=== PATIENT | male | born 1955 | race Caucasian/White ===

== ENCOUNTER 2018-05-23 12:21 | Inpatient (IN) | payer BC ==
[2018-05-23] VITALS (7 sets, daily range): BP systolic 129–170; BP diastolic 70–102
[~2018-05-23] VITALS: Ht 165.1 cm; Wt 72.6 kg
--- NOTE | 2018-05-23 12:40 | Emergency Room Report ---
History of Present Illness General Chief Complaint: General Complaint Source: Patient (Noemy Vallejo DO) Present Illness HPI Patient presents with reports of retained foreign body in the rectal area He recalls that this happened about one hour prior to arrival Patient feels dehydrated as well Denies any chest pain or shortness of breath denies any abdominal pain Denies any fevers or chills Patient some mild nausea Denies any other trauma (Noemy Vallejo DO) Allergies: Coded Allergies: No Known Allergies (Unverified , 05/23/18) Patient History Past Medical History: see triage record Pertinent Family History: none Reviewed Nursing Documentation: PMH: Agreed; PSxH: Agreed (Noemy Vallejo DO) Nursing Documentation-PMH Hx Cancer: Yes - lung (Noemy Vallejo DO) Review of Systems All Other Systems: negative except mentioned in HPI (Noemy Vallejo DO) Physical Exam Vital Signs Date Time Temp Pulse Resp B/P (MAP) Pulse Ox O2 Delivery O2 Flow Rate FiO2 05/23/18 12:23 99.0 106 20 159/103 95 Room Air 99.0 Sp02 EP Interpretation: reviewed, normal General Appearance: mild distress - Appears anxious Head: normocephalic, atraumatic Eyes: bilateral eye PERRL, bilateral eye EOMI ENT: hearing grossly normal, TMs + canals normal, uvula midline, dry mucus membranes Neck: full range of motion, supple, no meningismus, no bony tend Respiratory: lungs clear, normal breath sounds, no rhonchi, no respiratory distress, no retraction, no accessory muscle use Cardiovascular #1: normal peripheral pulses, regular rate, rhythm, no edema, no gallop, no JVD, no murmur Gastrointestinal: normal bowel sounds, non tender, soft, no mass, no organomegaly, non-distended, no guarding, no hernia, no pulsatile mass, no rebound Rectal: other - Initially I was not able to palpate any foreign bodies, no was some retained stool in the rectal region, after further attempt it feels as if there is a foreign body at the very distal tip of my fingertip, not able to be further manipulated or grasped Genitourinary: no CVA tenderness Musculoskeletal: normal inspection Neurologic: oriented x3, responsive, blasting miner III-XII nml as tested, motor strength/ tone normal, sensory intact Psychiatric: mood/affect normal Skin: normal color, no rash, warm/dry, palpation normal Lymphatic: normal inspection, no adenopathy (Noemy Vallejo DO) Procedures Procedural Sedation Consent: Verbal Time out called at: 15:08 Heart: abnormal Lungs: abnormal Abdomen: normal Extremities: normal Plan for Moderate Sedation: Propofol ASA Score: II Procedure Narrative Patient was given propofol in 3 mL aliquots until he was adequately sedated total the propofol used was 110 mg IV the patient was adequately sedated for procedure. Patient had the foreign body removed by Dr. Gabriel see his procedure note for procedure. Patient tolerated well. The patient is awake and alert post procedure Start Time: 15:09 End Time: 15:22 Post-Sedation Assessment The patient was noted to be awake and alert after procedure without any evident respiratory distress. Communication: No Apparent Limitation Mental Status: Awake Respiration: Unlabored Skin Condition: WNL Abdomen: WNL Nausea: NO Vomiting: NO (Bobby Owens MD) Medical Decision Making Diagnostic Impression: Primary Impression: Retained foreign body Additional Impression: Rectal bleeding ER Course Initial attempt in the emergency room is not able to remove the foreign body Patient at this time requiring further hydration imaging study does confirm the retained foreign body as well Which clinically correlates to the digital exam At this time patient requiring GI/Gen. surgery consultation And further inpatient care There are no signs of any intestinal perforation And patient admitted for further care Labs Test 05/23/18 12:45 White Blood Count 13.8 K/UL (4.8-10.8) Red Blood Count 5.30 M/UL (4.70-6.10) Hemoglobin 16.6 G/DL (14.2-18.0) Hematocrit 49.3 % (42.0-52.0) Mean Corpuscular Volume 93 FL (80-99) Mean Corpuscular Hemoglobin 31.4 PG (27.0-31.0) Mean Corpuscular Hemoglobin Concent 33.7 G/DL (32.0-36.0) Red Cell Distribution Width 11.1 % (11.6-14.8) Platelet Count 207 K/UL (150-450) Mean Platelet Volume 8.0 FL (6.5-10.1) Neutrophils (%) (Auto) 81.1 % (45.0-75.0) Lymphocytes (%) (Auto) 8.7 % (20.0-45.0) Monocytes (%) (Auto) 9.4 % (1.0-10.0) Eosinophils (%) (Auto) 0.3 % (0.0-3.0) Basophils (%) (Auto) 0.6 % (0.0-2.0) Prothrombin Time 12.3 SEC (9.30-11.50) Prothromb Time International Ratio 1.2 (0.9-1.1) Activated Partial Thromboplast Time 28 SEC (23-33) Sodium Level 129 MMOL/L (136-145) Potassium Level 3.7 MMOL/L (3.5-5.1) Chloride Level 95 MMOL/L (98-107) Carbon Dioxide Level 24 MMOL/L (21-32) Anion Gap 10 mmol/L (5-15) Blood Urea Nitrogen 15 mg/dL (7-18) Creatinine 1.0 MG/DL (0.55-1.30) Estimat Glomerular Filtration Rate > 60 mL/min (>60) Glucose Level 94 MG/DL (74-106) Calcium Level 8.4 MG/DL (8.5-10.1) Total Bilirubin 0.9 MG/DL (0.2-1.0) Aspartate Amino Transf (AST/SGOT) 156 U/L (15-37) Alanine Aminotransferase (ALT/SGPT) 57 U/L (12-78) Alkaline Phosphatase 59 U/L (46-116) Total Protein 7.1 G/DL (6.4-8.2) Albumin 3.7 G/DL (3.4-5.0) Globulin 3.4 g/dL Albumin/Globulin Ratio 1.1 (1.0-2.7) Lipase 191 U/L (73-393) (Noemy Vallejo DO) ER Course Foreign body was removed Dr. Gabriel. The patient tolerated well. The patient was noted to have some evidence of a continued bleeding. Patient will be actively hospital for further evaluation and probable further endoscopic evaluation. (Bobby Owens MD) Other X-Ray Diagnostic Results Other X-Ray Diagnostic Results : X-Ray ordered: KUB # of Views/Limited Vs Complete: 1 View Indication: Pain EP Interpretation: Yes Interpretation: no dislocation, no soft tissue swelling, no fractures, other - Evidence of foreign body Impression: Other - Foreign body Electronically Signed by: Noemy Vallejo DO (Noemy Vallejo DO) Last Vital Signs Date Time Temp Pulse Resp B/P (MAP) Pulse Ox O2 Delivery O2 Flow Rate FiO2 05/23/18 12:23 99.0 106 20 159/103 95 Room Air 99.0 Status: improved (Noemy Vallejo DO) Status: unchanged (Bobby Owens MD) Disposition: ADMITTED INPATIENT Condition: Serious Noemy Vallejo DO May 23, 2018 12:40 Bobby Owens MD May 23, 2018 15:33
[2018-05-23] MEDS ORDERED: Midazolam 2mg/2ml Inj IVP ONE (12:45)
[2018-05-23] MEDS ORDERED: Morphine Sulfate 4mg/ml Inj (IV USE ONLY) IVP ONE (12:45)
[2018-05-23 13:02] LABS: BASOPHILS % (AUTO) 0.6 % (0.0-2.0); EOSINOPHILS % (AUTO) 0.3 % (0.0-3.0); HEMATOCRIT 49.3 % (42.0-52.0); HEMOGLOBIN 16.6 G/DL (14.2-18.0); LYMPHOCYTES % (AUTO) 8.7 % (20.0-45.0); MEAN CORPUSCULAR VOLUME 93 FL (80-99); MONOCYTES % (AUTO) 9.4 % (1.0-10.0); NEUTROPHILS % (AUTO) 81.1 % (45.0-75.0); PLATELET COUNT 207 K/UL (150-450); RED CELL DISTRIBUTION WIDTH 11.1 % (11.6-14.8); WHITE BLOOD COUNT 13.8 K/UL (4.8-10.8)
[2018-05-23 13:12] LABS: ANION GAP 10 mmol/L (5-15); BLOOD UREA NITROGEN 15 mg/dL (7-18); CALCIUM 8.4 MG/DL (8.5-10.1); CARBON DIOXIDE 24 MMOL/L (21-32); CHLORIDE 95 MMOL/L (98-107); POTASSIUM 3.7 MMOL/L (3.5-5.1); SODIUM 129 MMOL/L (136-145)
[2018-05-23 13:13] LABS: INR 1.2 (0.9-1.1)
[2018-05-23 13:17] LABS: ALANINE AMINOTRANSFERASE 57 U/L (12-78); ALBUMIN 3.7 G/DL (3.4-5.0); ALBUMIN/GLOBULIN RATIO 1.1 (1.0-2.7); ALKALINE PHOSPHATASE 59 U/L (46-116); ASPARTATE AMINO TRANSFERASE 156 U/L (15-37); BILIRUBIN,TOTAL 0.9 MG/DL (0.2-1.0)
[2018-05-23] MEDS ORDERED: HYDROmorphone 1mg/ml Carpuject IVP ONE ×2 (13:30→14:00)
[2018-05-23] MEDS ORDERED: LORazepam Inj 2mg/ml 1ml IV ONE (14:00)
[2018-05-23] MEDS ORDERED: TRAZODONE HCL150 MG ORAL (14:07)
[2018-05-23] MEDS ORDERED: SONATA5 MG PO (14:09)
[2018-05-23] MEDS ORDERED: Propofol 200mg/20ml IV ONE ×2 (15:04→15:08)
--- NOTE | 2018-05-23 15:08 | Diagnostic Imaging Report ---
Indication: Suspected pelvic foreign body Technique: Supine view of the abdomen Comparison: none Findings: A partially metallic partially hollow partially blastic foreign body is seen within the pelvis, measures approximate centimeters in length by 2 cm transverse. Bowel gas pattern is unremarkable. No unusual masses or calcifications. Impression: Positive for foreign body
--- NOTE | 2018-05-23 15:36 | Consultation ---
History of Present Illness General Date patient seen: May 23, 2018 Chief Complaint: General Complaint Reason for Consultation: rectal foreign body Present Illness HPI 62 year old male presented to ED after losing a foreign body in rectum. Was with his girlfriend earlier when a "dildo" was lost in his rectum. Was unable to retrieve and came to ED for evaluation. Surgery called to assist with removal of foreign body as it was only barely palpable on rectal exam. Patient seen, chart reviewed, patient examined. complaints of discomfort. states has not been able to have BM or flatus since. feels foreign body discomfort. cannot tolerate more than simple rectal exam Allergies: Coded Allergies: No Known Allergies (Unverified , 05/23/18) Medication History Scheduled Trazodone* (Trazodone*), 150 MG ORAL BEDTIME, (Reported) Miscellaneous Medications Zaleplon (Sonata), 5 MG PO, (Reported) Patient History History Provided By: Patient, Medical Record, PMD Healthcare decision maker Resuscitation status Advanced Directive on File Past Medical/Surgical History Past Medical/Surgical History: (1) Rectal foreign body (2) Foreign body of rectum (3) FB anus/rectum (4) Retained foreign body Review of Systems Constitutional: Denies: no symptoms, see HPI, chills, sweats, fever, malaise, weakness, other Eye: Denies: no symptoms, see HPI, eye pain, blurred vision, tearing, double vision, nose pain, nose congestion, acuity changes, discharge, other ENT: Denies: no symptoms, see HPI, ear pain, ear discharge, nose pain, nose congestion, throat pain, throat swelling, mouth pain, hearing loss, nasal discharge, other Respiratory: Denies: no symptoms, see HPI, cough, orthopnea, shortness of breath, stridor, wheezing, HAY, sputum, other Cardiovascular: Denies: no symptoms, see HPI, chest pain, edema, palpitations, syncope, PND, other Gastrointestinal: Denies: no symptoms, see HPI, abdominal pain, constipation, diarrhea, nausea, vomiting, melena, hematemesis, other Genitourinary: Denies: no symptoms, see HPI, discharge, dysuria, frequency, hematuria, pain, retention, incontinence, urgency, vag bleed/dc, other Musculoskeletal: Denies: no symptoms, see HPI, back pain, gout, joint pain, joint swelling, muscle pain, muscle stiffness, other Skin: Denies: no symptoms, see HPI, rash, change in color, change in hair/nails , dryness, lesions, other Psychiatric: Denies: no symptoms, see HPI, prior hx, anxiety, depressed feelings, emotional problems, SI, HI, hallucinations, other Neurological: Denies: no symptoms, see HPI, headache, numbness, paresthesia, seizure, tingling, tremors, focal weakness, syncope, dizziness, other Endocrine: Denies: no symptoms, see HPI, excessive sweating, flushing, intolerance to temperature, increased thirst, increased urine, unexplained weight loss, other Hematologic/Lymphatic: Denies: no symptoms, see HPI, anemia, blood clots, easy bleeding, easy bruising, swollen glands, diathesis, other All Other Systems: negative except mentioned in HPI Physical Exam General Appearance: WD/WN, no apparent distress Lines, tubes and drains: peripheral HEENT: normocephalic, atraumatic, mucous membranes moist, PERRL Neck: non-tender, normal alignment, supple, normal inspection Respiratory/Chest: lungs clear, normal breath sounds, no respiratory distress, no accessory muscle use Cardiovascular/Chest: normal peripheral pulses, normal rate, regular rhythm Abdomen: normal bowel sounds, non tender, soft, no organomegaly, no mass Genitourinary/Rectal: other Extremities: normal range of motion, non-tender, normal inspection, no calf tenderness Skin Exam: normal pigmentation, warm/dry Neurologic: alert, oriented x 3 Last 24 Hour Vital Signs Date Time Temp Pulse Resp B/P (MAP) Pulse Ox O2 Delivery O2 Flow Rate FiO2 05/23/18 14:04 99.0 05/23/18 13:34 99.0 05/23/18 13:11 99 16 159/102 98 Room Air 05/23/18 12:23 99.0 106 20 159/103 95 Room Air 99.0 Laboratory Tests Test 05/23/18 12:45 White Blood Count 13.8 K/UL (4.8-10.8) H Red Blood Count 5.30 M/UL (4.70-6.10) Hemoglobin 16.6 G/DL (14.2-18.0) Hematocrit 49.3 % (42.0-52.0) Mean Corpuscular Volume 93 FL (80-99) Mean Corpuscular Hemoglobin 31.4 PG (27.0-31.0) H Mean Corpuscular Hemoglobin Concent 33.7 G/DL (32.0-36.0) Red Cell Distribution Width 11.1 % (11.6-14.8) L Platelet Count 207 K/UL (150-450) Mean Platelet Volume 8.0 FL (6.5-10.1) Neutrophils (%) (Auto) 81.1 % (45.0-75.0) H Lymphocytes (%) (Auto) 8.7 % (20.0-45.0) L Monocytes (%) (Auto) 9.4 % (1.0-10.0) Eosinophils (%) (Auto) 0.3 % (0.0-3.0) Basophils (%) (Auto) 0.6 % (0.0-2.0) Prothrombin Time 12.3 SEC (9.30-11.50) H Prothromb Time International Ratio 1.2 (0.9-1.1) H Activated Partial Thromboplast Time 28 SEC (23-33) Sodium Level 129 MMOL/L (136-145) L Potassium Level 3.7 MMOL/L (3.5-5.1) Chloride Level 95 MMOL/L (98-107) L Carbon Dioxide Level 24 MMOL/L (21-32) Anion Gap 10 mmol/L (5-15) Blood Urea Nitrogen 15 mg/dL (7-18) Creatinine 1.0 MG/DL (0.55-1.30) Estimat Glomerular Filtration Rate > 60 mL/min (>60) Glucose Level 94 MG/DL (74-106) Calcium Level 8.4 MG/DL (8.5-10.1) L Total Bilirubin 0.9 MG/DL (0.2-1.0) Aspartate Amino Transf (AST/SGOT) 156 U/L (15-37) H Alanine Aminotransferase (ALT/SGPT) 57 U/L (12-78) Alkaline Phosphatase 59 U/L (46-116) Total Protein 7.1 G/DL (6.4-8.2) Albumin 3.7 G/DL (3.4-5.0) Globulin 3.4 g/dL Albumin/Globulin Ratio 1.1 (1.0-2.7) Lipase 191 U/L (73-393) Height (Feet): 5 Height (Inches): 10.00 Weight (Pounds): 160 Assessment/Plan Problem List: (1) Foreign body of rectum Assessment & Plan: "dildo" in anus. noted on exam to be in rectum but >5cm as only can be palpated by tip of my finger. unable to retrieve without anal dilator and instruments. patient unable to tolerate without sedation. -sedation in ED -removed in ED. noted to be two piece dildo with rubber portion and battery operated insert -admit for observation post procedure -recommend scope by GI to ensure no tear given object and location. thank you ICD Codes: T18.5XXA - Foreign body in anus and rectum, initial encounter SNOMED: [id number] Qualifiers: Qualified Codes: T18.5XXA - Foreign body in anus and rectum, initial encounter Status: stable Elliot Gabriel May 23, 2018 15:36
--- NOTE | 2018-05-23 15:43 | Brief Operative Note ---
Immediate Post Operative Note Operative Note Pre-op Diagnosis: rectal foreign body Procedure: 1. anoscopy 2. removal of rectal foreign body Post-op Diagnosis: same as pre-op Surgeon: mae Anesthesia: moderate sedation - provied by ED physician Specimen: none Complications: none Condition: stable Fluids: 150cc Estimated Blood Loss: minimal Drains: none Implant(s) used?: Elliot Hernandez May 23, 2018 15:43
[2018-05-23] MEDS ORDERED: Nulytely 4L ORAL ONE (16:00)
--- NOTE | 2018-05-23 16:29 | GI Initial Consult Note ---
History of Present Illness General Date patient seen: May 23, 2018 Time patient seen: 16:27 Reason for Hospitalization: General Complaint Reason for Consultation: rectal foreign body Present Illness HPI 62 year old male presented to ED after losing a foreign body in rectum. Was with his girlfriend earlier when a "dildo" was lost in his rectum. Was unable to retrieve and came to ED for evaluation. Surgery called to assist with removal of foreign body as it was only barely palpable on rectal exam. Patient seen, chart reviewed, patient examined. complaints of discomfort. states has not been able to have BM or flatus since. feels foreign body discomfort. cannot tolerate more than simple rectal exam. Patient is now s/p foreign body removal of the rectum. GI consulted for follow up colonoscopy to r/o any perforation or tears to the rectum. Pt seen, alert A&Ox4 fatigue NAD with no active s/sx of N/V/D. At this time, has no complaint of rectal pain. Labs reviewed >> elevated AST, hyponatremia and leukocytosis. No anemia. The patients last colonoscopy was approximately 5 years ago, unremarkable results. Colonoscopy procedure, risks and benefits was discussed and acknowledged by the patient. Home Meds Reported Medications Zaleplon (SONATA) 5 Mg Capsule, 5 MG PO, CAP 05/23/18 Trazodone* (TRAZODONE*) 150 Mg Tablet, 150 MG ORAL BEDTIME, TAB 05/23/18 Med list reviewed/reconciled: Yes Allergies: Coded Allergies: No Known Allergies (Unverified , 05/23/18) Patient History History Provided By: Patient, Medical Record PMH Narrative Hx Cancer: Yes - lung Review of Systems All Other Systems: negative except mentioned in HPI Physical Exam Vital Signs Date Time Temp Pulse Resp B/P (MAP) Pulse Ox O2 Delivery O2 Flow Rate FiO2 05/23/18 12:23 99.0 106 20 159/103 95 Room Air 99.0 05/23/18 15:08 2.0 Sp02 EP Interpretation: reviewed, normal Labs Laboratory Tests Test 05/23/18 12:45 White Blood Count 13.8 K/UL (4.8-10.8) H Red Blood Count 5.30 M/UL (4.70-6.10) Hemoglobin 16.6 G/DL (14.2-18.0) Hematocrit 49.3 % (42.0-52.0) Mean Corpuscular Volume 93 FL (80-99) Mean Corpuscular Hemoglobin 31.4 PG (27.0-31.0) H Mean Corpuscular Hemoglobin Concent 33.7 G/DL (32.0-36.0) Red Cell Distribution Width 11.1 % (11.6-14.8) L Platelet Count 207 K/UL (150-450) Mean Platelet Volume 8.0 FL (6.5-10.1) Neutrophils (%) (Auto) 81.1 % (45.0-75.0) H Lymphocytes (%) (Auto) 8.7 % (20.0-45.0) L Monocytes (%) (Auto) 9.4 % (1.0-10.0) Eosinophils (%) (Auto) 0.3 % (0.0-3.0) Basophils (%) (Auto) 0.6 % (0.0-2.0) Prothrombin Time 12.3 SEC (9.30-11.50) H Prothromb Time International Ratio 1.2 (0.9-1.1) H Activated Partial Thromboplast Time 28 SEC (23-33) Sodium Level 129 MMOL/L (136-145) L Potassium Level 3.7 MMOL/L (3.5-5.1) Chloride Level 95 MMOL/L (98-107) L Carbon Dioxide Level 24 MMOL/L (21-32) Anion Gap 10 mmol/L (5-15) Blood Urea Nitrogen 15 mg/dL (7-18) Creatinine 1.0 MG/DL (0.55-1.30) Estimat Glomerular Filtration Rate > 60 mL/min (>60) Glucose Level 94 MG/DL (74-106) Calcium Level 8.4 MG/DL (8.5-10.1) L Total Bilirubin 0.9 MG/DL (0.2-1.0) Aspartate Amino Transf (AST/SGOT) 156 U/L (15-37) H Alanine Aminotransferase (ALT/SGPT) 57 U/L (12-78) Alkaline Phosphatase 59 U/L (46-116) Total Protein 7.1 G/DL (6.4-8.2) Albumin 3.7 G/DL (3.4-5.0) Globulin 3.4 g/dL Albumin/Globulin Ratio 1.1 (1.0-2.7) Lipase 191 U/L (73-393) General Appearance: well appearing, no apparent distress, alert Head: normocephalic EENT: PERRL/EOMI, normal ENT inspection Neck: supple Respiratory: normal breath sounds, no respiratory distress Cardiovascular: normal rate Gastrointestinal: normal inspection, non tender, soft, normal bowel sounds, non -distended Rectal: deferred Genitourinary: deferred Musculoskeletal: normal inspection, back normal Neurologic: normal inspection, alert, oriented x3, responsive Psychiatric: normal inspection, judgement/insight normal, memory normal Skin: normal inspection, normal color, no rash, warm/dry, palpation normal, well hydrated Lymphatic: normal inspection, no adenopathy Current Medications Current Medications Medications (Trade) Dose Ordered Sig/Sandra Route PRN Reason Start Time Stop Time Status Last Admin Dose Admin Sodium Phosphate (Fleet's Sodium Phosl Enema) 133 ml ONCE ONCE RECTAL 05/23/18 23:00 05/23/18 23:01 GI: Plan Problems: (1) Colonoscopy planned (2) Retained foreign body (3) Rectal bleeding (4) Foreign body of rectum Plan Colonoscopy scheduled for tomorrow. - CLD now, NPO @ [place]. - hold all blood thinners for tonight electrolyte correction prn transfusions abx will follow with addition recs post procedure Discussed with Dr. Masterson. Thank you for this patient referral, we will follow. The patient was seen and examined at bedside and all new and available data was reviewed in the patients chart. I agree with the above findings, impression and plan. (Patient seen earlier today. Signature stamp does not reflect patient encounter time.). - MD Marielos Mcclure,[facility] Ironwood Medical CenterDaniel DATABASE CONSULTANT May 23, 2018 16:29
--- NOTE | 2018-05-23 18:30 | Operative Note - Dictated ---
DATE OF OPERATION: 05/23/2018 PREOPERATIVE DIAGNOSIS: Rectal foreign body. POSTOPERATIVE DIAGNOSIS: Rectal foreign body. OPERATION PERFORMED: 1. Anoscopy. 2. Removal of rectal foreign body/dildo. ATTENDING SURGEON: Elliot Gabriel M.D. BLENDER CONVEYOR OPERATOR: None. ANESTHESIA: Conscious sedation with propofol provided by emergency department physician. ESTIMATED BLOOD LOSS: Minimal. IV FLUIDS: 150 mL. COMPLICATIONS: None. DRAINS: None. SPECIMENS: Rectal foreign body was noted to be a dildo and discarded off. INDICATIONS FOR PROCEDURE: This is a 62-year-old male, who presented to the emergency department of [facility] after a foreign body/dildo was released by his girlfriend and lost in his rectum. Foreign body was unable to be retrieved and the patient came to emergency room for evaluation. On initial evaluation, the x-ray was obtained, which identified the foreign body and on examination, unfortunately, foreign body could only be palpated by the tip of the finger identifying it being into the rectum without easily being extracted. Surgery was called for evaluation, at which time, the patient was seen and above findings were noted. Removal was indicated and recommended and the patient consented to procedure. Risks, benefits, and alternatives were discussed in detail. Decision was made to do procedure at the bedside in the emergency department under conscious sedation. OPERATIVE NOTE: The patient was made comfortable at the bedside in the emergency department. Conscious sedation was provided by the emergency department physician and necessary staff were present. Preoperative time-out was taken in identifying the patient, procedure, equipment, and staff. The patient was monitored and propofol was administered. Once the patient was comfortable and adequate conscious sedation was obtained, the patient was placed in the left lateral decubitus position. Anoscopy was performed and the rectal foreign body was identified approximately 6 cm into the rectal vault. There was a significant amount of stool in the rectal vault as well. There was some blood noted in rectum. Some stool was disimpacted and removed to identify the foreign body. With an anal dilator in place, the graspers were used to grasp the foreign body and slowly extracted. At this time, we noted the foreign body was in two parts, one part being a plastic rubber dildo sheath and the second part being an electrical vibrator that inserted into the plastic sheath. Both were removed safely without complication. Unfortunately, given the amount of stool and the equipment and the size of the foreign body, full examination could not be performed to ensure that there were no tears or other abnormalities. The remainder or what could be visualized with direct evaluation by anoscope did not show any other abnormalities. There was minimal blood loss only. The patient did have some hemorrhoids that were noted and some friable anal tissue. The patient tolerated the procedure well. Foreign body was discarded. The patient was monitored until fully awake and comfortable. Findings were discussed with the patient. Strong recommendations for followup colonoscopy, sigmoidoscopy, or examination by GI within next 24 hours. The patient will be admitted for evaluation. lEliot Gabriel M.D. DR: KINDRA JOB#: [id number] CC: JM
[2018-05-23] MEDS ORDERED: Mylanta II UD 30ml ORAL PRN (20:15)
[2018-05-23] MEDS ORDERED: Hydromorphone 0.5mg/0.5ml inj IVP PRN (20:15)
[2018-05-23] MEDS ORDERED: LORazepam Inj 2mg/ml 1ml IV PRN (20:15)
[2018-05-23] MEDS ORDERED: HYDROmorphone 1mg/ml Carpuject IVP PRN (20:15)
[2018-05-23] MEDS ORDERED: Milk of Magnesia 30ml Ud ORAL PRN (20:15)
[2018-05-23] MEDS ORDERED: Zolpidem 5mg tab ORAL PRN (20:15)
[2018-05-23] MEDS ORDERED: TraZODone 100mg tab ORAL SCH ×2 (21:00)
[2018-05-23] MEDS: 1/2NS w/KCl 20mEq 1000ml 1,000 ML IV SCH (21:11)
[2018-05-23] MEDS ORDERED: Fleet's Enema 133ml RECTAL ONE (23:00)
[2018-05-24] VITALS (7 sets, daily range): BP systolic 108–132; BP diastolic 59–77
--- NOTE | 2018-05-24 01:15 | History and Physical Report ---
DATE OF ADMISSION: 05/23/2018 HISTORY OF PRESENT ILLNESS: This is a 62-year-old male, who presented to the emergency room after losing a foreign body in his rectum. He apparently had a dildo that was not retrieved from his rectum. He was taken to the emergency room. Surgery was contacted and the patient was taken to the operating room. He underwent removal of the dildo without complication. PAST MEDICAL HISTORY: The patient has a past history of insomnia and uses trazodone. He also uses Sonata. PAST SURGICAL HISTORY: None reported. ALLERGIES: None reported. REVIEW OF SYSTEMS: Denies any headaches, hematemesis, melena, or hematochezia. PHYSICAL EXAMINATION: GENERAL: Reveals a 62-year-old male. VITAL SIGNS: Blood pressure 130/70, heart rate 84, respirations 18. HEENT: Unremarkable. LUNGS: Clear breath sounds bilaterally. ABDOMEN: Soft. NEUROLOGIC: Nonfocal. IMPRESSION: 1. Status post removal of foreign body. 2. Chronic insomnia. DISCUSSION: The patient is at this point doing well. GI is planning to do a sigmoidoscopy tomorrow. The patient will be seen and evaluated in the morning. Continue home medications with the IV fluids. . Harshad Fan M.D. DR: BRAYDEN JOB#: [id number] CC:
[2018-05-24] MEDS: 1/2NS w/KCl 20mEq 1000ml 1,000 ML IV SCH ×2 (01:30→10:27)
[2018-05-24 06:19] LABS: BASOPHILS % (AUTO) 0.5 % (0.0-2.0); EOSINOPHILS % (AUTO) 0.7 % (0.0-3.0); HEMATOCRIT 47.4 % (42.0-52.0); HEMOGLOBIN 16.3 G/DL (14.2-18.0); LYMPHOCYTES % (AUTO) 9.6 % (20.0-45.0); MEAN CORPUSCULAR VOLUME 95 FL (80-99); MONOCYTES % (AUTO) 8.7 % (1.0-10.0); NEUTROPHILS % (AUTO) 80.5 % (45.0-75.0); PLATELET COUNT 186 K/UL (150-450); RED BLOOD COUNT 4.99 M/UL (4.70-6.10); RED CELL DISTRIBUTION WIDTH 11.7 % (11.6-14.8); WHITE BLOOD COUNT 10.9 K/UL (4.8-10.8)
[2018-05-24 06:37] LABS: ANION GAP 6 mmol/L (5-15); CALCIUM 8.3 MG/DL (8.5-10.1); CARBON DIOXIDE 29 MMOL/L (21-32); CHLORIDE 104 MMOL/L (98-107); SODIUM 139 MMOL/L (136-145)
[2018-05-24 06:42] LABS: INR 1.2 (0.9-1.1)
[2018-05-24 07:09] LABS: BLOOD UREA NITROGEN 11 mg/dL (7-18)
[2018-05-24] MEDS ORDERED: Midazolam 2mg/2ml Inj ONE (12:29)
[2018-05-24] MEDS ORDERED: fentaNYL 100 mcg/2 mL IV ONE (12:29)
--- NOTE | 2018-05-24 12:31 | Pre-Procedure Note/Attestation ---
Pre-Procedure Note/Attestation Complete Prior to Procedure Planned Procedure: not applicable Procedure Narrative: colonoscopy Indications for Procedure Pre-Operative Diagnosis: foreign body Attestation I attest that I discussed the nature of the procedure; its benefits; risks and complications; and alternatives (and the risks and benefits of such alternatives ), prior to the procedure, with the patient (or the patient's legal access services representative). I attest that, if there was a reasonable possibility of needing a blood transfusion, the patient (or the patient's legal access services representative) was given the [facility] standardized written summary, pursuant to the Cyril Jose E Blood Safety Act ([place] Health and Safety Code # 1645, as amended). I attest that I re-evaluated the patient just prior to the surgery and that there has been no change in the patient's H&P, except as documented below: Ramez Masterson MD May 24, 2018 12:31
--- NOTE | 2018-05-24 12:33 | Moderate Sedation - Procedural ---
Moderate Sedation HPI Home Medication Reported Medications Zaleplon (SONATA) 5 Mg Capsule, 5 MG PO, CAP 05/23/18 Trazodone* (TRAZODONE*) 150 Mg Tablet, 150 MG ORAL BEDTIME, TAB 05/23/18 Patient History Allergies: Coded Allergies: No Known Allergies (Unverified , 05/23/18) Pre-Procedural Mod Sedation Date: May 24, 2018 Pre-Assessment Time: 12:32 Pre-Sedation Assessment: Reviewed H&P, Patient Examined, Pre-proc Edu. done, Plan for Sedation Discuss Airway Assessment (Malampati): II Heart: normal Lungs: normal Abdomen: normal Extremities: normal Pre-op Diagnosis: foreign body Evaluation Hx of untoward rxns to mod sed: Yes Procedures/Plans: Colonoscopy Plan for Moderate Sedation: Midazolam, Fentanyl ASA Score: II Informed Consent The nature of the procedure/sedation; its benefits; risks and complications; and alternatives (and the risks and benefits of such alternatives) were discussed with the patient (or their legal claim service representative), prior to the procedure. All questions were answered to the patient's (or their legal claim service representative's) satisfaction and the patient (or their legal claim service representative) gave informed consent to the procedure. I attest that I re-evaluated the patient just prior to the surgery and that there has been no change in the patient's H&P, except as documented below: Ramez Masterson MD May 24, 2018 12:33
[2018-05-24] MEDS ORDERED: NS 500ML IVPB ONE (13:00)
--- NOTE | 2018-05-24 13:29 | Endoscopy Procedure Note ---
Endoscopy Procedure Note General Indication for Procedure: foreign body Procedures Performed: colonoscopy Operative Findings/Diagnosis: diverticulosis Specimen: none Pt Tolerated Procedure Well: Yes Estimated Blood Loss: none Anesthesia Anesthesiologist: see chart Anesthesia: MAC Inserted Devices Implant(s) used?: No Quality Quality of Bowel Preparation: Good Did scope reach the cecum?: Yes Was there any complications?: No GI Core Measures 50 yrs or older w/o bx or poly: Not Applicable 10yrs. F/U not recommended: Not Applicable Ramez Masterson MD May 24, 2018 13:29
--- NOTE | 2018-05-24 13:32 | General Surgery Progress Note ---
General Surgery-Progress Note Subjective Procedure Performed 1. anoscopy 2. removal of rectal foreign body Additional Comments doing well. no acute events. tolerated prep well. no n/v/f/c. no abd pain. no longer rectal bleeding. Objective Last 24 Hour Vital Signs Date Time Temp Pulse Resp B/P (MAP) Pulse Ox O2 Delivery O2 Flow Rate FiO2 05/24/18 08:01 Room Air 05/24/18 08:00 98.6 79 18 132/75 (94) 95 98.6 05/24/18 00:33 98.5 72 20 131/59 (83) 96 98.5 05/23/18 21:52 Room Air 05/23/18 21:00 Room Air 05/23/18 18:40 140/72 05/23/18 16:12 15 05/23/18 15:19 97.8 93 20 136/70 100 Nasal Cannula 2.0 97.8 88 05/23/18 15:14 98.0 88 20 129/79 100 Nasal Cannula 2.0 98.0 05/23/18 15:09 97.8 93 15 167/102 100 Nasal Cannula 2.0 97.8 05/23/18 15:08 97.8 85 15 100 Nasal Cannula 2.0 97.8 98 100 88 100 88 05/23/18 14:04 99.0 05/23/18 13:34 99.0 I&O Intake and Output 05/23/18 05/24/18 19:00 07:00 Intake Total 0 ml 917.5 ml Output Total 250 ml 1500 ml Balance -250 ml -582.5 ml Intake Oral 0 ml 230 ml IV Total 687.5 ml Output Urine Total 250 ml 1500 ml Stool Total 0 ml # Voids 4 # Bowel Movements 4 Drains: none Cardiovascular: RSR Respiratory: clear Abdomen: soft, flat, non-tender, present bowel sounds Extremities: no cyanosis Laboratory Tests Test 05/24/18 05:45 White Blood Count 10.9 K/UL (4.8-10.8) H Red Blood Count 4.99 M/UL (4.70-6.10) Hemoglobin 16.3 G/DL (14.2-18.0) Hematocrit 47.4 % (42.0-52.0) Mean Corpuscular Volume 95 FL (80-99) Mean Corpuscular Hemoglobin 32.6 PG (27.0-31.0) H Mean Corpuscular Hemoglobin Concent 34.3 G/DL (32.0-36.0) Red Cell Distribution Width 11.7 % (11.6-14.8) Platelet Count 186 K/UL (150-450) Mean Platelet Volume 7.9 FL (6.5-10.1) Neutrophils (%) (Auto) 80.5 % (45.0-75.0) H Lymphocytes (%) (Auto) 9.6 % (20.0-45.0) L Monocytes (%) (Auto) 8.7 % (1.0-10.0) Eosinophils (%) (Auto) 0.7 % (0.0-3.0) Basophils (%) (Auto) 0.5 % (0.0-2.0) Prothrombin Time 12.7 SEC (9.30-11.50) H Prothromb Time International Ratio 1.2 (0.9-1.1) H Activated Partial Thromboplast Time 30 SEC (23-33) Sodium Level 139 MMOL/L (136-145) # Potassium Level 4.0 MMOL/L (3.5-5.1) Chloride Level 104 MMOL/L (98-107) Carbon Dioxide Level 29 MMOL/L (21-32) Anion Gap 6 mmol/L (5-15) Blood Urea Nitrogen 11 mg/dL (7-18) Creatinine 1.0 MG/DL (0.55-1.30) Estimat Glomerular Filtration Rate > 60 mL/min (>60) Glucose Level 76 MG/DL (74-106) Calcium Level 8.3 MG/DL (8.5-10.1) L Plan Problems: (1) Foreign body of rectum Assessment & Plan: "dildo" in anus. noted on exam to be in rectum but >5cm as only can be palpated by tip of my finger. unable to retrieve without anal dilator and instruments. patient unable to tolerate without sedation. removed in ED. noted to be two piece dildo with rubber portion and battery operated insert was present for scope today. patient well. no complaints. scope only noted some small abrasions in rectum. no large tears or injury. moderate external hemorrhoids noted. diet as tolerated d/c planning f/u as outpatient. thank you Elliot Gabriel May 24, 2018 13:32
--- NOTE | 2018-05-24 13:42 | Anethesia Preoperative Eval ---
Anesthesia Pre-op PMH/ROS General Date of Evaluation: May 24, 2018 Time of Evaluation: 13:05 Anesthesiologist: Rubens ASA Score: ASA 2 Mallampati Score Class I : Soft palate, uvula, fauces, pillars visible Class II: Soft palate, uvula, fauces visible Class III: Soft palate, base of uvula visible Class IV: Only hard plate visible Mallampati Classification: Class II Surgeon: Zelalem Diagnosis: S/p retained rectal foreign body Surgical Procedure: Colonoscopy Anesthesia History: none Family History: no anesthesia problems Allergies: Coded Allergies: No Known Allergies (Unverified , 05/23/18) Medications: see eMAR Past Medical History Cardiovascular: Denies: HTN, CAD, [place], valve dz, arrhythmia, other Pulmonary: Denies: asthma, COPD, JOCELY[place], other Gastrointestinal/Genitourinary: Denies: GERD, CRI, ESRD, other Neurologic/Psychiatric: Denies: dementia, CVA, depression/anxiety, TIA, other Endocrine: Denies: DM, hypothyroidism, steroids, other HEENT: Denies: cataract (L), cataract (R), glaucoma, [place] (L), [place] (R), other Hematology/Immune: Denies: anemia, DVT, bleeding disorder, other PMH Narrative: IBS, hypercholesterolemia PSxH Narrative: Colonoscopy Anesthesia Pre-op Phys. Exam Physician Exam Last Vital Signs Date Time Temp Pulse Resp B/P (MAP) Pulse Ox O2 Delivery O2 Flow Rate FiO2 05/24/18 08:01 Room Air 05/24/18 08:00 98.6 79 18 132/75 (94) 95 98.6 05/23/18 15:19 2.0 Constitutional: NAD Neurologic: CN 2-12 intact Cardiovascular: RRR, no M/R/G Respiratory: CTA Gastrointestinal: S/NT/ND Airway Exam Mallampati Score: Class II MO: full ROM: full Teeth: intact Anesthesia Pre-op A/P Labs Hematology Test 05/24/18 05:45 White Blood Count 10.9 K/UL (4.8-10.8) H Red Blood Count 4.99 M/UL (4.70-6.10) Hemoglobin 16.3 G/DL (14.2-18.0) Hematocrit 47.4 % (42.0-52.0) Mean Corpuscular Volume 95 FL (80-99) Mean Corpuscular Hemoglobin 32.6 PG (27.0-31.0) H Mean Corpuscular Hemoglobin Concent 34.3 G/DL (32.0-36.0) Red Cell Distribution Width 11.7 % (11.6-14.8) Platelet Count 186 K/UL (150-450) Mean Platelet Volume 7.9 FL (6.5-10.1) Neutrophils (%) (Auto) 80.5 % (45.0-75.0) H Lymphocytes (%) (Auto) 9.6 % (20.0-45.0) L Monocytes (%) (Auto) 8.7 % (1.0-10.0) Eosinophils (%) (Auto) 0.7 % (0.0-3.0) Basophils (%) (Auto) 0.5 % (0.0-2.0) Coagulation Test 05/24/18 05:45 Prothrombin Time 12.7 SEC (9.30-11.50) H Prothromb Time International Ratio 1.2 (0.9-1.1) H Activated Partial Thromboplast Time 30 SEC (23-33) Chemistry Test 05/24/18 05:45 Sodium Level 139 MMOL/L (136-145) # Potassium Level 4.0 MMOL/L (3.5-5.1) Chloride Level 104 MMOL/L (98-107) Carbon Dioxide Level 29 MMOL/L (21-32) Anion Gap 6 mmol/L (5-15) Blood Urea Nitrogen 11 mg/dL (7-18) Creatinine 1.0 MG/DL (0.55-1.30) Estimat Glomerular Filtration Rate > 60 mL/min (>60) Glucose Level 76 MG/DL (74-106) Calcium Level 8.3 MG/DL (8.5-10.1) L Risk Assessment & Plan Assessment: Healthy male Plan: GA, TIVA Status Change Before Surgery: No Pre-Antibiotics Drug: None Cyril Art MD May 24, 2018 13:42
--- NOTE | 2018-05-24 13:43 | Immediate Post-Op Evaluation ---
Immediate Post-Op Evalulation Immediate Post-Op Evalulation Procedure: Colonoscopy Date of Evaluation: May 24, 2018 Time of Evaluation: 13:50 IV Fluids: 250 Blood Pressure Systolic: 110 Blood Pressure Diastolic: 61 Pulse Rate: 69 Respiratory Rate: 20 O2 Sat by Pulse Oximetry: 100 Temperature (Fahrenheit): 99.2 Pain Score (1-10): 0 Nausea: No Vomiting: No Complications No complication Patient Status: reacts, patent, none Hydration Status: adequate Drug: None Cyril Art MD May 24, 2018 13:43
[2018-05-24] MEDS ORDERED: Midazolam 2mg/2ml Inj IVP PRN (13:45)
[2018-05-24] MEDS ORDERED: fentaNYL 100 mcg/2 mL IV PRN (13:45)
--- NOTE | 2018-05-24 13:45 | 48 Hour Post Anesthesia Eval ---
Post Anesthesia Evaluation Procedure: Colonoscopy Date of Evaluation: May 24, 2018 Time of Evaluation: 14:15 Blood Pressure Systolic: 112 0: 62 Pulse Rate: 70 Respiratory Rate: 15 O2 Sat by Pulse Oximetry: 100 Airway: patent Nausea: No Vomiting: No Pain Intensity: 0 Hydration Status: adequate Cardiopulmonary Status: Stable Mental Status/LOC: patient returned to baseline Follow-up Care/Observations: As per GI Post-Anesthesia Complications: No anesthetic complication Follow-up care needed: N/A Cyril Art MD May 24, 2018 13:45
--- NOTE | 2018-05-24 17:07 | Pulmonology Progress Note ---
Assessment/Plan Assessment/Plan IMPRESSION: 1. Status post removal of foreign body. 2. Chronic insomnia. DISCUSSION: The patient is at this point doing well. Continue home medications, Dc home Harshad Fan M.D. Subjective Interval Events: S/p colonoscopy; feeling better Constitutional: Reports: no symptoms HEENT: Repors: no symptoms Cardiovascular: Reports: no symptoms Gastrointestinal/Abdominal: Reports: no symptoms Genitourinary: Reports: no symptoms Allergies: Coded Allergies: No Known Allergies (Unverified , 05/23/18) Objective Last 24 Hour Vital Signs Date Time Temp Pulse Resp B/P (MAP) Pulse Ox O2 Delivery O2 Flow Rate FiO2 05/24/18 14:20 98.8 76 20 124/77 (93) 96 98.8 05/24/18 14:03 69 20 111/71 100 Simple Mask 5 05/24/18 13:50 69 20 108/66 100 Simple Mask 5 05/24/18 13:45 69 20 111/67 100 Simple Mask 5 05/24/18 13:45 70 15 100 05/24/18 13:43 210.6 69 20 100 05/24/18 13:40 99.2 69 20 110/61 100 Simple Mask 5 99.2 05/24/18 08:01 Room Air 05/24/18 08:00 98.6 79 18 132/75 (94) 95 98.6 05/24/18 00:33 98.5 72 20 131/59 (83) 96 98.5 05/23/18 21:52 Room Air 05/23/18 21:00 Room Air 05/23/18 18:40 140/72 Intake and Output 05/23/18 05/24/18 19:00 07:00 Intake Total 0 ml 917.5 ml Output Total 250 ml 1500 ml Balance -250 ml -582.5 ml Intake Oral 0 ml 230 ml IV Total 687.5 ml Output Urine Total 250 ml 1500 ml Stool Total 0 ml # Voids 4 # Bowel Movements 4 General Appearance: no acute distress HEENT: normocephalic Respiratory/Chest: chest wall non-tender, lungs clear Cardiovascular: normal peripheral pulses, normal rate Laboratory Tests 05/24/18 05:45: White Blood Count 10.9H, Red Blood Count 4.99, Hemoglobin 16.3, Hematocrit 47.4 , Mean Corpuscular Volume 95, Mean Corpuscular Hemoglobin 32.6H, Mean Corpuscular Hemoglobin Concent 34.3, Red Cell Distribution Width 11.7, Platelet Count 186, Mean Platelet Volume 7.9, Neutrophils (%) (Auto) 80.5H, Lymphocytes ( %) (Auto) 9.6L, Monocytes (%) (Auto) 8.7, Eosinophils (%) (Auto) 0.7, Basophils (%) (Auto) 0.5, Prothrombin Time 12.7H, Prothromb Time International Ratio 1.2H , Activated Partial Thromboplast Time 30, Sodium Level 139#, Potassium Level 4.0 , Chloride Level 104, Carbon Dioxide Level 29, Anion Gap 6, Blood Urea Nitrogen 11, Creatinine 1.0, Estimat Glomerular Filtration Rate > 60, Glucose Level 76, Calcium Level 8.3L Harshad Fan MD May 24, 2018 17:07
--- NOTE | 2018-05-25 14:17 | Discharge Summary ---
Discharge Summary Discharge Summary _ DATE OF ADMISSION: 05/23/2018 DATE OF DISCHARGE: 05/24/2018 REASON FOR ADMISSION: 62 years old male presented to emergency room for evaluation. He was with girlfriend earlier, when a "dildo" was lost in his rectum . He was unable to retrieve it from his rectum. Patient went to emergency room for evaluation. Surgeon was consulted. Surgeon seen and evaluated the patient in emergency department. Patient with severe discomfort in rectal area. Unable to have bowel movement or pass flatus. Patient was unable to tolerate more than simple rectal exam. Abdominal x-ray revealed partially metallic partially hollow partially plastic foreign body within the pelvis . Laboratory workup revealed mild leukocytosis WBC 13.9 ,stable hemoglobin and hematocrit. Sodium 129 , stable renal parameters Patient admitted for removal of foreign body with diagnosis of retained rectal foreign body CONSULTANTS: ID specialist Dr. Masterson surgery Dr. Gabriel [facility]SE: Patient started on IV hydration In emergency department surgeon seen and evaluated the patient . Surgeon was unable to retrieve foreign body without anal dilator and instruments. Patient was unable to tolerate exam without sedation. Patient undergone under conscious sedation in emergency department anoscopy and removal of rectal foreign body "dildo" Noted two pieces: rubber portion and battery-operated insert. Patient admitted overnight after procedure. Surgeon recommended follow-up with colonoscopy/sigmoidoscopy to ensure no tear , given object and location. Patient subsequently undergone colonoscopy on May 24 with findings of diverticulosis, no tear was noted. Pain management was addressed ,and pain was controlled. GI prophylaxis provided. Next day sodium 139 from initial 129. Hyponatremia was likely due to mild dehydration. Leukocytosis trending down from initial 13.8 down to 10.9. Leukocytosis was likely reactive secondary to retained rectal foreign body ,no other evidence of infection, no fever . Patient clinically improved , pain controlled, tolerated diet, passing flatus. Patient was stable for discharge home. Due to rapid and unexpected improvement in patient's condition, the patient was discharged in one day. FINAL DIAGNOSES: Retained rectal foreign body/"dildo" Status post anoscopy and removal of rectal foreign body Status post colonoscopy with findings of diverticulosis DISCHARGE MEDICATIONS: See Medication Reconciliation list. DISCHARGE INSTRUCTIONS: Patient was discharged home. I have been assigned to dictate discharge summary for this account. I was not involved in the patient's management. Monik Bauer NP May 25, 2018 14:17
--- NOTE | 2018-05-25 17:45 | Procedure Note ---
SURGEON: Ramez Masterson M.D. PROCEDURE: Colonoscopy. ANESTHESIA: Per . INSTRUMENT: Olympus adult flexible colonoscope. INDICATION: foreign body. The procedure, risks, benefits, and possible consequences, including hemorrhage, aspiration, perforation and infection, and alternative treatments, were explained to the patient/legal guardian by Dr. Ramez Masterson and the patient/legal guardian understood and accepted these risks. DESCRIPTION OF PROCEDURE: After informed consent was obtained and the patient was adequately sedated, first rectal exam was performed which was positive for external and internal hemorrhoids. Then, the scope was advanced from the rectum into the cecum documented by the appendiceal orifice, ileocecal valve, and right upper quadrant palpation. Quality of prep was very good. The patient had scattered diverticulosis in both left and right colon, but more prominent in the left colon. There was abrasion in the rectosigmoid area from the foreign body, but at this time, there is not any obvious perforation or ulceration seen. There was no obvious polyp seen in this colonoscopy examination. Retroflexion of rectum showed evidence of large internal hemorrhoids. SUMMARY OF FINDINGS: 1. Internal and external hemorrhoids. 2. Diverticulosis. 3. Small abrasion from foreign body. RECOMMENDATIONS: The patient is okay to be discharged. We will advance the diet. Follow with his primary licensed loan officer assistant as an outpatient. Ramez Masterson M.D. DR: Jared JOB#: [id number] CC:
== END 2018-05-24 16:00 | disposition home or self-care (01) | DRG 395 ==
LOC: EMR 12:45 → 3E 12:54 → EDBEDREQ 13:09
PROC: 0DCP8ZZ Extirpation of Matter from Rectum, Via Natural or Artificial Opening Endoscopic (ICD-10-PCS; principal; 2018-05-23)
PROC: 0DJD8ZZ Inspection of Lower Intestinal Tract, Via Natural or Artificial Opening Endoscopic (ICD-10-PCS; 2018-05-24)
DX: T18.5XXA Foreign body in anus and rectum, initial encounter (principal); X58.XXXA Exposure to other specified factors, initial encounter; G47.00 Insomnia, unspecified; Z85.118 Personal history of other malignant neoplasm of bronchus and lung; K57.90 Diverticulosis of intestine, part unspecified, without perforation or abscess without bleeding; K64.4 Residual hemorrhoidal skin tags; K64.8 Other hemorrhoids
CPT/HCPCS: 36415; 74018; 80048; 80053; 83690; 85025; 85610; 85730; J2250; J2405